=== PATIENT | male | born 1945 | race Caucasian/White ===

== ENCOUNTER 2024-02-28 01:12 | Day surgery (SDC) | payer MEDICARE, SELFPAY ==
[2024-02-08 10:11] VITALS: BMI 21.4
[2024-02-28 08:47] VITALS: BP 125/79; PULSE 102; RESP 18; TEMP 36.1; O2SAT 99
[2024-02-28] MEDS: LACTATED RINGERS 1,000 ML 150 ML IV CONT (08:58)
--- NOTE | 2024-02-28 09:24 | WPDANESEPPF ---
Anes - Initial Pre Proc Eval Procedure: Operation Date: 02/28/24 10:00 Proposed Procedures p Screening Colonoscopy - Sergio Acuna MD Date/Time: 02/28/24 09:24 Surgeon: Sergio Acuna MD Pre Op Diagnosis: screening malignant neoplasm colon Patient Data Age: 78 Gender: M Height: 1.75 m Weight: 66.8 kg Last Vital Signs Temp 36.1 C L 02/28/24 08:47 Pulse 102 H 02/28/24 08:47 Resp 18 02/28/24 08:47 BP 125/79 02/28/24 08:47 Pulse Ox 99 02/28/24 08:47 O2 Del Method Room Air 02/28/24 08:47 Allergies Allergy/AdvReac Type Severity Reaction Status Date / Time No Known Allergies Allergy Verified 02/28/24 08:45 Home Medications Medication Instructions Recorded Confirmed Type sildenafil (pulm.hypertension) 20 40 mg PO DAILY PRN PULMONARY 02/08/24 02/28/24 History mg tablet HYPERTENSION valsartan 160 1 tablet PO DAILY 02/08/24 02/28/24 History mg-hydrochlorothiazide 12.5 mg tablet fexofenadine 60 mg tablet 60 mg PO Q12H 02/28/24 02/28/24 History Patient hx anesthesia problems: none Family hx anesthesia problems: none Results Review: All pre-operative results and documents have been reviewed as part of the pre-operative evaluation. [facility] Past Medical History Medical History (Updated 02/28/24 @ 09:24 by Noble Mello MD) HTN (hypertension) Melanoma Social History Social History Smoking status: Never smoker Alcohol intake: current Drinks per week: 14 Alcohol use details: BEER Substance use: never Substance use type: does not use Living arrangements: with family Spiritual care concerns: No Anes - Eval Final PreProcedure Day of Procedure 02/28/24 09:24 Patient weight: normal Heart: regular rate and rhythm Lungs: clear to auscultation Airway: Mallampati scale class II Neurological: alert and oriented Last oral intake: >/= 8 hours ASA classification: II Emergent: no Anesthetic plan: proceed Anesthesia type and monitoring: general GIVS and standard monitoring Results Review: All pre-operative results and documents have been reviewed as part of the pre-operative evaluation. Informed Consent: The patient's anesthetic plan and its attendant risks and benefits were discussed with the patient/family/POA. Questions were solicited and answers provided to the satisfaction of the patient/family/POA.
--- NOTE | 2024-02-28 10:11 | PM.IMHP ---
H&P: HPI History of Present Illness Date/Time: 02/28/24 10:11 Chief Complaint: History of polyps Narrative: The patient has a history of colonic polyps. Last colonoscopy was 5 years ago and revealed polyps. Review of Systems Review of Systems: All systems reviewed & are unremarkable except as noted in HPI and below PMFSH Past Medical History Medical History (Updated 02/28/24 @ 10:12 by Sergio Acuna MD) HTN (hypertension) Melanoma Social History Social History Smoking status: Never smoker Alcohol intake: current Drinks per week: 14 Alcohol use details: BEER Substance use: never Substance use type: does not use Living arrangements: with family Spiritual care concerns: No Meds Home Medications and Allergies Home Medications Medication Instructions Recorded Confirmed Type sildenafil (pulm.hypertension) 20 40 mg PO DAILY PRN PULMONARY 02/08/24 02/28/24 History mg tablet HYPERTENSION valsartan 160 1 tablet PO DAILY 02/08/24 02/28/24 History mg-hydrochlorothiazide 12.5 mg tablet fexofenadine 60 mg tablet 60 mg PO Q12H 02/28/24 02/28/24 History Allergies Allergy/AdvReac Type Severity Reaction Status Date / Time No Known Allergies Allergy Verified 02/28/24 08:45 Vital Signs Vital Signs - 24 hr 02/28/24 08:47 Temperature 96.9 F L Pulse Rate 102 H Respiratory Rate 18 Blood Pressure 125/79 Pulse Oximetry 99 Oxygen Delivery Room Air Assessment and Plan Assessment and plan (1) History of colonic polyps: Code(s): Z86.0100 - Personal history of colon polyps, unspecified Status: Acute Assessment and Plan: patient deemed a good candidate for colonoscopy. Will proceed.
[2024-02-28 10:37] VITALS: BP 76/49; PULSE 83; RESP 19; O2SAT 96
[2024-02-28 10:40] VITALS: BP 93/60; PULSE 72; RESP 17; O2SAT 98
[2024-02-28 10:47] VITALS: BP 100/61; PULSE 76; RESP 21; O2SAT 98
[2024-02-28 10:57] VITALS: BP 116/72; PULSE 76; RESP 15; O2SAT 100
== END 2024-02-28 11:16 | disposition home or self-care (01) ==
PROVIDERS: PCP Physician Assistant; Visit Provider Internal Medicine Gastroenterology
PROC: 0DJD8ZZ Inspection of Lower Intestinal Tract, Via Natural or Artificial Opening Endoscopic (ICD-10-PCS; CPT 45378; principal; 2024-02-28 10:00)
DX: Z12.11 Encounter for screening for malignant neoplasm of colon (principal); D12.8 Benign neoplasm of rectum; K64.1 Second degree hemorrhoids; K57.30 Diverticulosis of large intestine without perforation or abscess without bleeding; I10 Essential (primary) hypertension; Z85.820 Personal history of malignant melanoma of skin
CPT/HCPCS: 45385; 88305; J2003; J2704; J7120

== ENCOUNTER 2024-09-12 08:27 | Outpatient (CLI) | payer MEDICARE, SELFPAY ==
--- NOTE | ~2024-09-12 | US_ITS ---
US art doppler w press LE BI INDICATION: Peripheral vascular disease TECHNIQUE: Segmental pressures and plethysmographic and Doppler waveforms of the brachial and lower e xtremity arteries were obtained. COMPARISON: None. FINDINGS: Right and left brachial artery pressures of 100 mm Hg and 86 mm Hg, respectively, are concordant (nor mal difference <= 30 mmHg). The right ankle-brachial index (NIESHA) is 1.39 (normal >= 0.9-1.0). The right great toe-brachial index (TBI) is 0.82 (normal >= 0.60). The left NIESHA is 1.3. The left TBI is 0.8. There is triphasic flow in the right common femoral and dorsalis pedis arteries with biphasic flow in the remainder of the right lower extremity arteries. There is triphasic flow in the left common femo ral artery with biphasic flow in the left superficial femoral, popliteal and dorsalis pedis arteries with monophasic flow in the posterior tibial artery. IMPRESSION: 1. Normal ankle-brachial indices. Reviewed, dictated and finalized at location A.
--- OUTSIDE RECORDS SUMMARY | 2024-09-13 11:09 | XMS_ITS | Data Portability ---
Author Organization [employer], Main Office Address [address] [place] [address] Assessment No assessment recorded. Plan of Treatment Reminders Order Date Submit Date Provider Last Modified By Organization Details Last Modified Time Details Appointments Any 15 2024 09:30A CLAUDINE Smith Not available Not available Not available Lab PSA, serum or plasma 2024 025 [facility] (Lab), [address] [place], [address], 07/30/2024 05:00:27 hemoglobi n A1C, fingersti ck [address], [address], 07/21/2024 10:27:04 hemoglobi n A1C, fingersti ck [address], [address], 07/21/2024 10:26:46 glycohemo globin, total, blood [address] (Lab), [address] [place], [address], 01/28/2024 08:37:10 PSA, serum or plasma [email or web address] (Lab), [address] [place], [address], 01/28/2024 08:37:10 lipid panel, serum 2022 023 [email or web address], [address], [place], [address], 01/25/2023 05:40:49 CMP, serum or plasma 2022 023 [email or web address], [address], [place], [address], 01/25/2023 05:40:51 CBC w/ auto diff 2022 023 [email or web address], [address], [place], [address], 01/25/2023 05:40:52 PT/PTT, plasma 2022 023 [email or web address], [address], [place], [address], 01/25/2023 05:40:51 CBC w/ auto diff 2022 023 [email or web address] 1 [facility] (Lab), [address] [place], [address], 02/06/2023 14:50:42 PSA, serum or plasma 2022 023 [email or web address] 1 [facility] (Lab), [address] [place], [address], 02/06/2023 14:50:43 TSH, serum or plasma 2022 023 [email or web address], [address], [place], [address], 01/25/2023 05:40:53 Referral gastroent erologist referral - needs a screening colonosco py . Please call patient to schedule an appointme nt. Thank you . 2023 024 [email or web address] Eddie Llamas MD, [address] [facility] [address], [place], [address], 02/18/2024 08:53:50 Procedures None recorded. Surgeries None recorded. Imaging US, doppler, arterial - bilateral lower extrem 2024 025 [facility] (Imaging), [address] [facility] [address], [place], [address], 09/11/2024 16:54:23 US, doppler, venous - bilateral lower extrem [address] (Imaging), [facility] [address], [place], [address], 08/21/2024 14:13:57 US, duplex, arterial, lower extremity , complete [address] (Imaging), [facility]0 [facility] [address], [place], [address], 02/04/2024 15:53:45 US, doppler, venous - Lower bilateral , US Duplex also ordered *Please call pt to schedule* [address] (Imaging), [address] [facility] [address], [place], [address], 02/27/2024 10:16:12 Medication Orders Cialis 20 mg tablet 2024 [id number], [address] [place], [address], 07/21/2024 14:49:19 valsartan 160 mg-hydroc hlorothia zide 12.5 mg tablet 2024 [place] [id number], [address] [place], [place], [id number], 07/21/2024 09:45:02 cyprohept adine 4 mg tablet 2023 024 [id number], [address] [facility], [place], [id number], 01/21/2024 10:00:23 Patient TargetsNo targets recorded. Patient Instructions Encounter Date Encounter Id Patient Instructions Last Modified By Organization Details Last Modified Time 01/19/2023 [id number] dementia rating scale-2* Not available 01/19/2023 10:07:32 alcohol misuse* Not available 01/19/2023 10:07:38 depression screening* Not available 01/19/2023 10:07:42 multi-dimensiona l health assessment questionnaire* Not available 01/19/2023 10:07:23 Personalized Hea lth Plan and Screening Recommendations Advance Directives - Do you have one? Yes Advance Directives - Do we have your advance directive on file in your health record? No, please bring in a copy at your earliest convenience Primary Prevention/Interven tion (prevents or decreases the chance of common diseases from occurring) Smoking Risk: Non Smoker Alcohol Misuse Screening: Negative Weight: Appropriate Physical activity: Need more exercise/physical activity minimum of 10-20 minutes of activity that causes mild breathlessness/day Nutrition: Good Average Refer to attached handout Heart-Healthy Diet: After Your Visit Fall Risk (screened today): Low Vaccines Pneumococcal: Influenza: Your next one in the fall of this year Chronic Disease Risks Stroke: Low Risk I have no recommendations Heart Attack: Low risk I have no recommendations Clogging of the Arteries: Low risk I have no recommendations Diabetes: Low Risk I have no recommendations Secondary Prevention/Interven tion (detects treatable diseases before they may cause symptoms, disability, or ) Prostate Cancer Screening: No digital rectal exam screening necessary Colon Cancer Screening: Colonoscopy Date Screening Last Performed: 01/23/19 with repeat recommendation for 5 years Eye Disease Screening: Dementia Risk: Low I have no recommendations Depression Screening: Negative [email or web address] Not available 01/18/2023 14:15:45 01/21/2024 [id number] dementia rating scale-2* [email or web address] Not available 01/21/2024 09:51:35 depression screening* Not available 01/21/2024 09:52:10 alcohol misuse* [email or web address] Not availab le 01/21/2024 09:52:10 multi-dimensiona l health assessment questionnaire* [email or web address] Not available 01/21/2024 10:45:51 Personalized Hea lt Plan and Screening Recommendations Advance Directives - Do you have one? Yes Advance Directives - Do we have your advance directive on file in your health record? Primary Prevention/Interven tion (prevents or decreases the chance of common diseases from occurring) Smoking Risk: Non Smoker Alcohol Misuse Screening: Negative Weight: Appropriate continue your current weight loss efforts Physical activity: Need more exercise/physical activity minimum of 10-20 minutes of activity that causes mild breathlessness/day Nutrition: Good Average Fall Risk (screened today): Low Vaccines Pneumococcal: Ordered Recommended today Recommended today, but you have declined Influenza: Your next one in the fall of this year Chronic Disease Risks Stroke: Low Risk I have no recommendations Heart Attack: Low risk I have no recommendations Clogging of the Arteries: Low risk I have no recommendations Diabetes: Low Risk I have no recommendations Secondary Prevention/Interven tion (detects treatable diseases before they may cause symptoms, disability, or ) Prostate Cancer Screening: No digital rectal exam screening necessary Colon Cancer Screening: Colonoscopy Eye Disease Screening: No Eye exam necessary Dementia Risk: Low I have no recommendations Depression Screening: Negative [email or web address] Not available 01/21/2024 10:30:56 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 Please call patient to schedule an appointment. Thank you . Referring Physician: Marek Baeza, Family Medicine, Encounter Date: 01/21/2024 Results Created Date Observation Date Name Description Value Unit Range Abnormal Flag Note LastModifiedBy Organization Detail LastModifiedTime 01/07/20 21 01/07/2021 COMPR EHENS ERIC METAB OLIC PANEL glucose 103 mg/dL 65-99 high Fasti ng refer ence inter brianna For someo ne witho ut known diabe you, a gluco se value betwe en 100 and 125 mg/dL is consi stent with predi abete s and shoul d be confi rmed with a follo w-up test. Not Available [facility] [address] [place], [address], 01/07/2021 05:50:45 01/07/20 21 01/07/2021 COMPR EHENS ERIC METAB OLIC PANEL urea nitrogen (BUN) 27 mg/dL 7-25 high Not Available [address], [address], 01/07/2021 05:50:45 01/07/20 21 01/07/2021 COMPR EHENS ERIC METAB OLIC PANEL creatinine 1.08 mg/dL 0.70-1 .18 normal For patie nts >49 years of age, the refer ence limit for Creat inine is appro ximat agueda 13% highe r for peopl e ident ified as Afric an-Am keren n. Not Available [address], [address], 01/07/2021 05:50:45 01/07/20 21 01/07/2021 COMPR EHENS ERIC METAB OLIC PANEL eGFR non-afr. moldovan 67 mL/mi n/1.7 3m2 > or = 60 normal Not Available [address], [address], 01/07/2021 05:50:45 01/07/20 21 01/07/2021 COMPR EHENS ERIC METAB OLIC PANEL eGFR 78 mL/mi n/1.7 3m2 > or = 60 normal Not Available [address], [address], 01/07/2021 05:50:45 01/07/20 21 01/07/2021 COMPR EHENS ERIC METAB OLIC PANEL BUN/creatini ne ratio 25 (calc ) 6-22 high Not Available [address], [address], 01/07/2021 05:50:45 01/07/20 21 01/07/2021 COMPR EHENS ERIC METAB OLIC PANEL sodium 141 mmol/ L 135-14 6 normal Not Available [address], [address], 01/07/2021 05:50:45 01/07/20 21 01/07/2021 COMPR EHENS ERIC METAB OLIC PANEL potassium 4.4 mmol/ L 3.5-5. 3 normal Not Available [address], [address], 01/07/2021 05:50:45 01/07/20 21 01/07/2021 COMPR EHENS ERIC METAB OLIC PANEL chloride 106 mmol/ L 98-110 normal Not Available [address], [address], 01/07/2021 05:50:45 01/07/2001/07/2021 COMPR EHENS ERIC METAB OLIC PANEL carbon dioxide 26 mmol/ L 20-32 normal Not Available [address], [address], 01/07/2021 05:50:45 01/07/2001/07/2021 COMPR EHENS ERIC METAB OLIC PANEL calcium 9.6 mg/dL 8.6-10 .3 normal Not Available [address], [address], 01/07/2021 05:50:45 01/07/2001/07/2021 COMPR EHENS ERIC METAB OLIC PANEL protein, total 7.0 g/dL 6.1-8. 1 normal Not Available [address], [address], 01/07/2021 05:50:45 01/07/2001/07/2021 COMPR EHENS EIRC METAB OLIC PANEL albumin 4.2 g/dL 3.6-5. 1 normal Not Available [address], [address], 01/07/2021 05:50:45 01/07/20 21 01/07/2021 COMPR EHENS ERIC METAB OLIC PANEL globulin 2.8 g/dL_ (calc ) 1.9-3. 7 normal Not Available [address], [address], 01/07/2021 05:50:45 01/07/20 21 01/07/2021 COMPR EHENS ERIC METAB OLIC PANEL albumin/glob ulin ratio 1.5 (calc ) 1.0-2. 5 normal Not Available [address], [address], 01/07/2021 05:50:45 01/07/20 21 01/07/2021 COMPR EHENS ERIC METAB OLIC PANEL bilirubin, total 0.8 mg/dL 0.2-1. 2 normal Not Available [address], [address], 01/07/2021 05:50:45 01/07/20 21 01/07/2021 COMPR EHENS ERIC METAB OLIC PANEL alkaline phosphatase 67 U/L 35-144 normal Not Available [address], [address], 01/07/2021 05:50:45 01/07/20 21 01/07/2021 COMPR EHENS ERIC METAB OLIC PANEL AST 24 U/L 10-35 normal Not Available [address], [address], 01/07/2021 05:50:45 01/07/20 21 01/07/2021 COMPR EHENS ERIC METAB OLIC PANEL ALT 29 U/L 9-46 normal Not Available [address], [address], 01/07/2021 05:50:45 01/07/20 21 01/07/2021 LIPID PANEL , STAND LAUREN cholesterol, total 161 mg/dL <200 normal Not Available [address] [place] [address] [place], [address], 01/07/2021 05:50:43 01/07/2001/07/2021 LIPID PANEL , STAND LAUREN HDL cholesterol 59 mg/dL > or = 40 normal Not Available [facility] [address] [place], [address], 01/07/2021 05:50:43 01/07/20 21 01/07/2021 LIPID PANEL , STAND LAUREN triglyceride s 62 mg/dL <150 normal Not Available [facility] [address] [address] [place], [address], 01/07/2021 05:50:43 01/07/2001/07/2021 LIPID PANEL , STAND LAUREN LDL-choleste rol 88 mg/dL _(demi c) normal Refer ence range : <100 Enid able range <100 mg/dL for prima ry preve ntion ; <70 mg/dL for patie nts with CHD or diabe tic patie nts with > or = 2 CHD risk facto rs. LDL-C is now calcu lated using the Yolette ruano-Hop kins beckau agata n, which is a valid ated novel familia pappasy than the Fried fernando equat ion in the estim ation of LDL-C . Yolette ruano SS et al. CHERYL. 2013; 310(1 9): 2061- 2068 (http ://ed ucati on.Qu Lucero saldaña tics. com/f aq/FA Q164) Not Available [facility] [address] [place], [address], 01/07/2021 05:50:43 01/07/2001/07/2021 LIPID PANEL , STAND LAUREN chol/HDLC ratio 2.7 (calc ) <5.0 normal Not Available [facility] [address] [place], [address], 01/07/2021 05:50:43 01/07/20 21 01/07/2021 LIPID PANEL , STAND LAUREN non HDL cholesterol 102 mg/dL _(demi c) <130 normal For patie nts with diabe you plus 1 major ASCVD risk facto r, treat ing to a non-H DL-C goal of <100 mg/dL (LDL- C of <70 mg/dL ) is arleen august optio n. Not Available [place] [address] [place], [address], 01/07/2021 05:50:43 01/25/2001/25/2023 LIPID PANEL , STAND LAUREN cholesterol, total 153 mg/dL <200 normal Not Available [address], [address], 01/25/2023 05:40:49 01/25/2001/25/2023 LIPID PANEL , STAND LAUREN HDL cholesterol 52 mg/dL > or = 40 normal Not Available [place] [address] [place], [address], 01/25/2023 05:40:49 01/25/2001/25/2023 LIPID PANEL , STAND LAUREN triglyceride s 98 mg/dL <150 normal Not Available [address], [address], 01/25/2023 05:40:49 01/25/2001/25/2023 LIPID PANEL , STAND LAUREN LDL-choleste rol 82 mg/dL _(demi c) normal Refer ence range : <100 Enid able range <100 mg/dL for prima ry preve ntion ; <70 mg/dL for patie nts with CHD or diabe tic patie nts with > or = 2 CHD risk facto rs. LDL-C is now calcu lated using the Yolette n-Hop kins calcu agata n, which is a valid ated novel familia grider r accur acy than the Fried fernando equat ion in the estim ation of LDL-C . Yolette ruano SS et al. CHERYL. 2013; 310(1 9): 2061- 2068 (http ://ed ucati on.Qu Lucero piper [employer]. com/f aq/FA Q164) Not Available [facility] [address] [address] [address], [place], [address], 01/25/2023 05:40:49 01/25/2001/25/2023 LIPID PANEL , STAND LAUREN chol/HDLC ratio 2.9 (calc ) <5.0 normal Not Available [facility] [address] [address] [address], [place], [address], 01/25/2023 05:40:49 01/25/2001/25/2023 LIPID PANEL , STAND LAUREN non HDL cholesterol 101 mg/dL _(demi c) <130 normal For patie nts with diabe you plus 1 major ASCVD risk facto r, treat ing to a non-H DL-C goal of <100 mg/dL (LDL- C of <70 mg/dL ) is consi dered a thera peuti c optio n. Not Available [place] [address] [facility] [place], [address], 01/25/2023 05:40:49 01/25/2001/25/2023 PROTH ROMBI N W/INR + PARTI AL THROM BOPLA STIN TIMES partial thromboplast in time, activated 28 sec 23-32 normal This test has not been valid ated for monit oring unfra ction ated hepar in thera py. For testi ng that is valid ated for this type of thera py, kamron e refer to the Hepar in Anti- Xa assay (test code 54385 ). For addit ional infor kamron rhoades e refer to http: //georgina ruano.Axel stDia gnost ics.c om/fa q/FAQ 159 (This link is being provi ded for infor connie nal/e ducat ional purpo ses only. ) Not Available [facility] [address] [address] [address], [place], [address], 01/25/2023 05:40:51 01/25/20 23 01/25/2023 PROTH ROMBI N W/INR + PARTI AL THROM BOPLA STIN TIMES INR 1.0 normal Refer ence Range 0.9-1 .1 Moder ate-i ntens ity Warfa rin Thera py 2.0-3 .0 Highe r-int ensit y Warfa rin Thera py 3.0-4 .0 Not Available [address], [address], 01/25/2023 05:40:51 01/25/20 23 01/25/2023 PROTH ROMBI N W/INR + PARTI AL THROM BOPLA STIN TIMES PT 10.4 sec 9.0-11 .5 normal Not Available [address], [address], 01/25/2023 05:40:51 01/25/20 23 01/25/2023 COMPR EHENS ERIC METAB OLIC PANEL glucose 89 mg/dL 65-99 normal Fasti ng refer ence inter brianna Not Available [address], [address], 01/25/2023 05:40:51 01/25/20 23 01/25/2023 COMPR EHENS ERIC METAB OLIC PANEL urea nitrogen (BUN) 20 mg/dL 7-25 normal Not Available [address], [address], 01/25/2023 05:40:51 01/25/20 23 01/25/2023 COMPR EHENS ERIC METAB OLIC PANEL creatinine 1.09 mg/dL 0.70-1 .28 normal Not Available [address], [address], 01/25/2023 05:40:51 01/25/20 23 01/25/2023 COMPR EHENS ERIC METAB OLIC PANEL eGFR 70 mL/mi n/1.7 3m2 > or = 60 normal Not Available [address] [place], [address], 01/25/2023 05:40:51 01/25/2001/25/2023 COMPR EHENS ERIC METAB OLIC PANEL BUN/creatini ne ratio SEE NOTE: (calc ) 6-22 Not Repor garrett: BUN and Creat inine are withi n refer ence range . Not Available [address], [address], 01/25/2023 05:40:51 01/25/20 23 01/25/2023 COMPR EHENS ERIC METAB OLIC PANEL sodium 137 mmol/ L 135-14 6 normal Not Available [address], [address], 01/25/2023 05:40:51 01/25/20 23 01/25/2023 COMPR EHENS ERIC METAB OLIC PANEL potassium 4.2 mmol/ L 3.5-5. 3 normal Not Available [address], [place], [address], 01/25/2023 05:40:51 01/25/2001/25/2023 COMPR EHENS ERIC METAB OLIC PANEL chloride 103 mmol/ L 98-110 normal Not Available [address], [address], 01/25/2023 05:40:51 01/25/2001/25/2023 COMPR EHENS ERIC METAB OLIC PANEL carbon dioxide 29 mmol/ L 20-32 normal Not Available [facility] [address], [address], 01/25/2023 05:40:51 01/25/2001/25/2023 COMPR EHENS ERIC METAB OLIC PANEL calcium 9.2 mg/dL 8.6-10 .3 normal Not Available [address], [address], 01/25/2023 05:40:51 01/25/20 23 01/25/2023 COMPR EHENS ERIC METAB OLIC PANEL protein, total 6.5 g/dL 6.1-8. 1 normal Not Available [address], [address], 01/25/2023 05:40:51 01/25/20 23 01/25/2023 COMPR EHENS ERIC METAB OLIC PANEL albumin 4.0 g/dL 3.6-5. 1 normal Not Available [address], [address], 01/25/2023 05:40:51 01/25/2001/25/2023 COMPR EHENS ERIC METAB OLIC PANEL globulin 2.5 g/dL_ (calc ) 1.9-3. 7 normal Not Available [address], [address], 01/25/2023 05:40:51 01/25/20 23 01/25/2023 COMPR EHENS ERIC METAB OLIC PANEL albumin/glob ulin ratio 1.6 (calc ) 1.0-2. 5 normal Not Available [address], [address], 01/25/2023 05:40:51 01/25/20 23 01/25/2023 COMPR EHENS ERIC METAB OLIC PANEL bilirubin, total 0.7 mg/dL 0.2-1. 2 normal Not Available [address], [address], 01/25/2023 05:40:51 01/25/20 23 01/25/2023 COMPR EHENS ERIC METAB OLIC PANEL alkaline phosphatase 65 U/L 35-144 normal Not Available [address], [address], 01/25/2023 05:40:51 01/25/20 23 01/25/2023 COMPR EHENS ERIC METAB OLIC PANEL AST 23 U/L 10-35 normal Not Available [address], [address], 01/25/2023 05:40:51 01/25/20 23 01/25/2023 ROBBIE HAMMONDS ERIC METAB OLIC PANEL ALT 17 U/L 9-46 normal Not Available [address], [address], 01/25/2023 05:40:51 01/25/20 23 01/25/2023 CBC (INCL UDES DIFF/ PLT) white blood cell count 3.8 thous and/u L 3.8-10 .8 normal Not Available [address], [address], 01/25/2023 05:40:52 01/25/20 23 01/25/2023 CBC (INCL UDES DIFF/ PLT) red blood cell count 5.02 gela on/uL 4.20-5 .80 normal Not Available [address], [address], 01/25/2023 05:40:52 01/25/2001/25/2023 CBC (INCL UDES DIFF/ PLT) hemoglobin 15.3 g/dL 13.2-1 7.1 normal Not Available [address], [address], 01/25/2023 05:40:52 01/25/2001/25/2023 CBC (INCL UDES DIFF/ PLT) hematocrit 46.3 % 38.5-5 0.0 normal Not Available [address], [address], 01/25/2023 05:40:52 01/25/2001/25/2023 CBC (INCL UDES DIFF/ PLT) MCV 92.2 fL 80.0-1 00.0 normal Not Available [address], [address], 01/25/2023 05:40:52 01/25/2001/25/2023 CBC (INCL UDES DIFF/ PLT) MCH 30.5 pg 27.0-3 3.0 normal Not Available [address], [address], 01/25/2023 05:40:52 01/25/2001/25/2023 CBC (INCL UDES DIFF/ PLT) MCHC 33.0 g/dL 32.0-3 6.0 normal Not Available [address], [address], 01/25/2023 05:40:52 01/25/2001/25/2023 CBC (INCL UDES DIFF/ PLT) RDW 13.3 % 11.0-1 5.0 normal Not Available [address], [address], 01/25/2023 05:40:52 01/25/2001/25/2023 CBC (INCL UDES DIFF/ PLT) platelet count 151 thous and/u L 140-40 0 normal Not Available [address], [address], 01/25/2023 05:40:52 01/25/2001/25/2023 CBC (INCL UDES DIFF/ PLT) MPV 11.7 fL 7.5-12 .5 normal Not Available [address], [address], 01/25/2023 05:40:52 01/25/2001/25/2023 CBC (INCL UDES DIFF/ PLT) absolute neutrophils 2519 cells /uL 1500-7 800 normal Not Available [address], [address], 01/25/2023 05:40:52 01/25/2001/25/2023 CBC (INCL UDES DIFF/ PLT) absolute lymphocytes 737 cells /uL 850-39 00 low Not Available [address], [address], 01/25/2023 05:40:52 01/25/2001/25/2023 CBC (INCL UDES DIFF/ PLT) absolute monocytes 445 cells /uL 200-95 0 normal Not Available [address], [address], 01/25/2023 05:40:52 01/25/2001/25/2023 CBC (INCL UDES DIFF/ PLT) absolute eosinophils 80 cells /uL 15-500 normal Not Available [address], [address], 01/25/2023 05:40:52 01/25/2001/25/2023 CBC (INCL UDES DIFF/ PLT) absolute basophils 19 cells /uL 0-200 normal Not Available [address], [address], 01/25/2023 05:40:52 01/25/2001/25/2023 CBC (INCL UDES DIFF/ PLT) neutrophils 66.3 % normal Not Available [address], [address], 01/25/2023 05:40:52 01/25/2001/25/2023 CBC (INCL UDES DIFF/ PLT) lymphocytes 19.4 % normal Not Available [facility] [address], [address], 01/25/2023 05:40:52 01/25/2001/25/2023 CBC (INCL UDES DIFF/ PLT) monocytes 11.7 % normal Not Available [facility] [address], [address], 01/25/2023 05:40:52 01/25/2001/25/2023 CBC (INCL UDES DIFF/ PLT) eosinophils 2.1 % normal Not Available [facility] [address] [place], [address], 01/25/2023 05:40:52 01/25/2001/25/2023 CBC (INCL UDES DIFF/ PLT) basophils 0.5 % normal Not Available [facility] [address] [place], [address], 01/25/2023 05:40:52 01/25/2001/25/2023 TSH TSH 3.58 mIU/L 0.40-4 .50 normal Not Available [facility] [address] [place], [address], 01/25/2023 05:40:53 07/23/19 25 07/22/2024 hemog lobin A1C, finge rstic k HgbA1C 6.0 Not Available [address], [address], 07/21/2024 09:47:07 07/23/1907/22/2024 hemog lobin A1C, finge rstic k HgbA1C 6.0 Not Available [address], [address], 07/21/2024 09:46:58 09/13/19 25 09/12/2024 US, mikey reyes, arter ial, lower extre mity, compl ete No observ ation record ed. [facility] [address], [place], [address], 09/12/2024 13:15:32 Result Notes None recorded. Problems Name Problem SNOMED Code Status Onset Date Resolution Date Notes Provider Name and Address Organization Details Recorded Time Persistent insomnia 006352959 Active 2018 Not Available [facility] 3 20:40:08 Abnormal weight loss 237180573 Active 2018 Not Available [facility] 3 20:40:08 Vitamin D deficiency 64030734 Active 2018 Not Available [facility] 3 20:40:08 Seasonal allergic rhinitis 353957613 Active 2018 Not Available [facility] 3 20:40:08 Elevated blood-pres sure reading without diagnosis of hypertensi on 109076960 Active 2018 Not Available [facility] 3 20:40:08 Primary erectile dysfunctio n 378585201 Active 2018 Not Available [facility] 3 20:40:08 Essential hypertensi on 71298712 Active 2018 Not Available [facility] 3 20:40:08 Skin lesion 79063579 Active 2018 Not Available [facility] 3 20:40:09 Unintentio nal weight loss 681925375 Active 2022 Siva Scott MD [address], [place], [address] , [facility] 3 09:46:19 Fatigue 63145986 Active 2022 Siva Scott MD [address], [place], [address] , [facility] 3 09:48:09 Easy bruising 639980164 Active 2022 Siva Scott MD [address], [place], [address] , [facility] 3 09:51:06 Screening for malignant neoplasm of prostate Active 2023 CLAUDINE Monsivais [address], [place], [address] , [facility] [employer] [facility] 4 09:45:21 Screening for malignant neoplasm of colon Active 2023 CLAUDINE Monsivais [address], [place], [address] , [facility] 4 09:45:43 Taking multiple medication s for chronic disease 0119534557670 08 Active 2023 CLAUDINE Monsivais [address], [place], [address] , [employer] 4 09:54:36 Loss of appetite 37986634 Active 2023 CLAUDINE Monsivais [address] [employer], [place], [address] , [employer] 4 09:59:08 Poor peripheral circulatio n 8586299 Active 2023 CLAUDINE Monsivais [address], [place], [address] , [employer] 4 10:00:56 Prostate specific antigen above reference range 382456518 Active 2024 CLAUDINE Monsivais [address] [employer], [address], [place], [address] , [employer] 5 13:59:32 Problem Notes None recorded. Procedures Surgical History Date Name Laterality Status Provider Name and Address Organization Details Recorded Time 4 Medicare Wellness CPT Code, subsequent completed Pamela España RN [place] [employer] Information 01/21/2024 09:32:08 3 Medicare Wellness CPT Code, subsequent completed Jessy Bowman RN [place] [employer] 01/18/2023 14:07:53 excision of melanoma completed Not Available [facility] 07/12/2022 20:39:23 Imaging Results Imaging Date Name Status LastModified by Organiz ation Details LastModified Time 09/12/2024 US, duplex, arterial, lower extremity, complete active [place] [id number] [facility] [address] [place] [address], [address], 09/12/2024 13:15:32 Procedure Notes None recorded. Medical Equipment None Reported. Allergies No known drug allergies Medications Name Sig Start Date Stop Date Status Note LastModified by Organization Details LastModified Time clindamycin HCl 300 mg capsule TAKE 1 CAPSULE BY MOUTH EVERY 6 HOURS active Not Available Not Available No t Available trazodone 50 mg tablet Take 1 tablet every day by oral route. active Not Available Not Available No t Available cetirizine 10 mg tablet Take 1 tablet every day by oral route. 01/29 completed Not Available Not Available Not Available azithromyci n 250 mg tablet active Not Available Not Available Not Available ibuprofen 800 mg tablet TAKE 1 TABLET BY MOUTH EVERY 6 HOURS active Not Available Not Available No t Available valsartan 160 mg-hydrochl orothiazide 12.5 mg tablet TAKE 1 TABLET BY MOUTH EVERY DAY 2024 active Not Available Not Available Not Avai lable tramadol 50 mg tablet TAKE 1 TABLET BY MOUTH EVERY 6 HOURS NEEDED FOR PAIN active Not Available Not Available No t Available cyproheptad ine 4 mg tablet Take by oral route for 30 days. active Not Available Not Available No t Available amoxicillin 875 mg tablet TAKE 1 TABLET BY MOUTH EVERY 12 HOURS 01/20 completed Not Available Not Available Not Available amitriptyli ne 25 mg tablet TAKE 1 TABLET BY MOUTH EVERY NIGHT AT BEDTIME 09/22 completed d/c Not Available Not Available Not Available triamcinolo ne acetonide 0.1 % topical ointment APPLY TO RASH ON ANKLES TWICE DAILY FOR 2 WEEKS active Not Available Not Available No t Available clobetasol 0.05 % topical ointment APPLY TO THE AFFECTED AREA ON LEGS TWICE DAILY NEEDED FOR FLARE UPS active Not Available Not Available No t Available lisinopril 10 mg-hydrochl orothiazide 12.5 mg tablet Take 1 tablet every day by oral route in the morning. 01/03 completed Not Available Not Available Not Available methylpredn isolone 4 mg tablets in a dose pack FPD 01/03 completed Not Available Not Available Not Available Vitamin D2 1,250 mcg (50,000 unit) capsule Take 1 capsule every week by oral route. 01/03 completed Not Available Not Available Not Available fluticasone propionate 50 mcg/actuati on nasal spray,suspe nsion Toone 1 spray twice a day by intranasa l route. 01/03 completed Not Available Not Available Not Available naproxen 500 mg tablet TAKE 1 TABLET BY MOUTH TWICE DAILY WITH FOOD active Not Available Not Available No t Available Benicar HCT 20 mg-12.5 mg tablet Take 1 tablet every day by oral route. 01/03 completed Not Available Not Available Not Available tadalafil 20 mg tablet TAKE ONE TABLET BY MOUTH UP TO ONCE daily NEEDED active Not Available Not Available No t Available sildenafil (pulmonary hypertensio n) 20 mg tablet Take 2 tablets by mouth up to once daily as needed active Not Available Not Available No t Available Fluzone High-Dose 8555-0911 (PF) 180 mcg/0.5 mL intramuscul ar syringe 01/29 completed Not Available Not Available Not Available Fluzone Quad (PF) 60 mcg (15 mcg x 4)/0.5 mL IM syringe 01/03 completed Not Available Not Available Not Available Vitals Date Recorded Body mass index (BMI) Body height Oxygen saturation Oxygen saturation in Arterial blood by Pulse oximetry Heart rate Body temperature Body weight Systolic blood pressure Diastolic blood pressure Provider Name and Address Organization Details Last Updated DateTime 1 23.3 kg/m2 175.26 cm 98 % 98 % 88 /min 97.4 [degF] 63751.5 9 g 102 mm[Hg] 80 mm[Hg] Not Available [facility] 3 20:39:48 Date Recorded Body mass index (BMI) Body height Oxygen saturation Oxygen saturation in Arterial blood by Pulse oximetry Heart rate Body temperature Body weight Systolic blood pressure Diastolic blood pressure Provider Name and Address Organization Details Last Updated DateTime 2 23 kg/m2 175.26 cm 98 % 98 % 79 /min 97 [degF] 55550.4 1 g 110 mm[Hg] 80 mm[Hg] Not Available [facility] 3 20:39:48 Date Recorded Body weight Body mass index (BMI) Body height Body temperature Heart rate Oxygen saturation Oxygen saturation in Arterial blood by Pulse oximetry Systolic blood pressure Diastolic blood pressure Provider Name and Address Organization Details Last Updated DateTime 3 15746.4 5 g 22.3 kg/m2 175.26 cm 98.4 [degF] 70 /min 98 % 98 % 110 mm[Hg] 62 mm[Hg] Nena morales CMA [place] [facility] 3 09:35:29 Date Recorded Body height Body mass index (BMI) Body weight Body temperature Heart rate Oxygen saturation Oxygen saturation in Arterial blood by Pulse oximetry Respiratory rate Systolic blood pressure Diastolic blood pressure Provider Name and Address Organization Details Last Updated DateTime 4 175.26 cm 22 kg/m2 02423.2 6 g 98.5 [degF] 60 /min 100 % 100 % 16 /min 110 mm[Hg] 68 mm[Hg] Pamela España RN [facility] [place] [facility] 4 09:37:32 Date Recorded Body height Body mass index (BMI) Body weight Body temperature Heart rate Respiratory rate Oxygen saturation Oxygen saturation in Arterial blood by Pulse oximetry Systolic blood pressure Diastolic blood pressure Provider Name and Address Organization Details Last Updated DateTime 5 175.26 cm 23.1 kg/m2 59483.8 5 g 98 [degF] 97 /min 16 /min 97 % 97 % 120 mm[Hg] 70 mm[Hg] Kerrie Huang [facility] [place] [facility] 5 09:24:43 Social History Question Answer Notes LastModified by [employer] Details LastModified Time Tobacco Smoking Status Never Smoker Not Available [facility] 07/12/2022 20:39:17 In The 14 Days Before Symptom Onset, Have You Had Close Contact With A Laboratory-confirm ed COVID-19 While That Case Was Ill? No [id number] Information not available 07/12/2022 In The 14 Days Before Symptom Onset, Have You Had Close Contact With A Person Who Is Under Investigation For COVID-19 While That Person Was Ill? No [id number] Information not available 07/12/2022 What Type Of Diet Are You Following? REGULAR [id number] Information not available 07/12/2022 What Was The Date Of Your Most Recent Tobacco Screening? 01/21/2024 [email or web address] Information not available 01/21/2024 Have You Recently Traveled Abroad? No [id number] Information not available 07/12/2022 Sex: Unknown Functional Status Question Answer Note LastModified by [employer] Details LastModified Time What is your exercise level? None [id number] Information not available 07/12/2022 Mental Status None recorded. Family History Relationship Description Onset Age of this Age Resolved Age Notes LastModified by Organization Details LastModified Time Mother Pulmonary emphysema [id number] Not available 07/12/2022 20:39:24 Daughter Type 1 diabetes mellitus [id number] Not available 07/12/2022 20:39:24 Medical History No medical history recorded. Past Encounters Encounter ID Performer Location Encounter Start Date Encounter Closed Date Diagnosis/Indication Diagnosis SNOMED-CT Code Diagnosis ICD10 Code Diagnosis Note [id number] Siva Scott MD [facility] Laura garcia [address] [place] [address] 01/03/2021 00:00:00 01/04/2021 08:57:32 [id number] Siva Scott MD [facility] Laura garcia [address] [place] [address] [place] [address] 09/22/2021 00:00:00 09/22/2021 13:19:29 [id number] Siva Scott MD [facility] Laura garcia formerly [facility] [address] [place] [address] 01/19/2023 09:25:36 01/19/2023 09:54:29 Adult health examination 056537155 Z00.00 Screening for disorder 711803901 Z13.9 Unintentio nal weight loss 912610701 R63.4 Hyperlipid emia screening 060033452 Z13.220 Fatigue 34918090 R53.83 Screening for malignant neoplasm of prostate 639169924 Z12.5 Easy bruising 705156182 R58 [id number] Shaun Urias MD [facility] Laura llsalomon formerly [facility] [place] [address] [place] [address] [address] 01/21/2024 09:11:48 01/21/2024 10:06:21 Adult health examination 352480022 Z00.00 Screening for disorder 230056561 Z13.9 Screening for malignant neoplasm of prostate 604213047 Z12.5 Screening for malignant neoplasm of colon 407961380 Z12.11 Taking mul tiple medications for chronic disease 4269889982 40893 Z79.899 Loss of appetite 2325661 6 R63.0 Poor perip heral circulation 1521831 I73.9 Essential hypertension 29477458 I10 Seasonal a llergic rhinitis 904540590 J30.2 Unintentio nal weight loss 441502857 R63.4 [id number] Shaun Urias MD [facility] [address] [address] 07/21/2024 09:16:43 07/21/2024 16:48:02 Poor peripheral circulation 5548886 I73.9 Essential hypertension 59920766 I10 Primary er ectile dysfunction 358237786 N52.9 Screening for malignant neoplasm of prostate 759724757 Z12.5 Taking mul tiple medications for chronic disease 2318565378 05962 Z79.899 Health Concerns Section Related Observation LastModified by Organization Detai ls LastModified Time None Recorded Concern Status LastModified by Organization Details LastModified Time None Recorded Advance Directives Directive None Recorded Payers Encounter Date Sequence Insurance Name Policy Number Policy Matos Covered Member ID Matos Member ID Guarantor Name 01/19/2023 1 [employer] (MEDICARE REPLACEMENT PPO) [id number] Bill Beverly [id number] Bill Beverly 01/21/2024 1 [employer] (MEDICARE REPLACEMENT PPO) [id number] Bill Beverly [id number] Bill Beverly 07/21/2024 1 [employer] (MEDICARE REPLACEMENT PPO) [id number] Bill Beverly [id number] Bill Beverly Notes Date Note Type Note Provider Name and Address Organization Details Recorded Time 01/19/2023 text/html Here for [facility]. Castillo s issues with age spots on right leg. Has appetite problems and exhaustion. On no blood thinners. Needs BW. Had colonoscopy in 2019. No fmhx of colon cancer. No fmhx of prostate cancer. Siva Scott MD [address], [place], [address], [place] [facility] [employer] 01/20/2023 18:04:36 01/21/2024 text/html no appetite , castillo s lost weight , 10 pounds ; sores on legs lack of energy. the airport operations manager gave him an ointment for the dry scaly skin on lower legs CLAUDINE Monsivais [address], [place], [address], [place] [facility] 01/21/2024 17:06:28 07/21/2024 text/html Did not get tests . CLAUDINE Almaguer [address] [place] [address], [place] [address], [place], [address], [facility] [employer] [facility] [place] [facility] 07/27/2024 16:02:20
--- OUTSIDE RECORDS SUMMARY | 2024-09-13 11:10 | XMS_ITS | Clinical Summary ---
Author Organization [facility] Address [address] [place] [address] Care Team Providers Care Peanut Farmer Name Role Phone Unavailable Primary Care Provider Unavailabl e Social History Tobacco Use Types Packs/Day Years Used Date Smoking Tobacco: Never Assessed Sex and Gender Information Value Date Recorded Sex Assigned at Not on file Legal Sex Male 7:52 PM CDT Gender Identity Not on file Sexual Orientation Not on file Plan of Treatment Health Maintenance Due Date Last Done Comments Hepatitis C 1963 DTaP, Tdap and Td Vaccines ( 1 - Tdap) 1965 Pneumococcal Vaccine: 50+ Ye ars (1 of 1 - PCV) 1996 Zoster Vaccines (1 of 2) 1996 RSV Immunization or 60+ Years (1 - 1-dose 75+ series) 2021 COVID-19 Vaccine ( - 2023-2 5 season) 2024 Meningococcal B Vaccine Aged Out No l onger eligible based on patient's age to complete this topic Meningococcal Vaccine Aged Out No rukhsana kimberlee eligible based on patient's age to complete this topic RSV Immunizations Under 20 Months Aged Out No longer eligible based on patient's age to complete this topic
--- OUTSIDE RECORDS SUMMARY | 2024-09-13 11:10 | XMS_ITS | Clinical Summary ---
Author Organization [facility] Address [address], [address] [address] Phone Care Team Providers Care Field Logistics Coordinator Name Role Phone Siva Scott MD Primary Care Provider [phone] Medications Cholecalciferol (VITAMIN D PO) Take by mouth. Active sildenafil (REVATIO) 20 MG Tablet Take 20 mg by mouth 3 times daily. Active fluticasone (FLONASE) 50 MCG/ACT Suspension 1-2 Sprays by Nasal route daily. Use in each nostril as directed. Active Cetirizine HCl (ZYRTEC PO) Take by mouth. Act victoria valsartan-hydroC HLOROthiazide (DIOVAN-HCT) 160-12.5 MG Tablet TK 1 T PO QD 4 9 Active traZODone (DESYREL) 50 MG Tablet trazodone 50 mg tablet TK 1 T PO D Active FIBER POIndications:be nifiber morning and night Take by mouth. Indications: benifiber morning and night Active Probiotic Product (PROBIOTIC DAILY PO) Take by mouth. Activ e Nutritional Supplements (BOOST) Liquid Take by mouth. Active amitriptyline (ELAVIL) 25 MG Tablet Take 1 Tab by mouth nightly. 90 Tab 3 0 Active Active Problems Problem Noted Date Diagnosed Date High blood pressure 06/14/2018 Immunizations Immunization Administration Dates Next Due Influenza Vaccine less than 3 yrs 02/11/2019 Family History Medical History Relation Name Comments Emphysema Mother Stroke Mother Relation Name Status Comments Mother Stroke Social History Tobacco Use Types Packs/Day Years Used Date Smoking Tobacco: Never Smokeless Tobacco: Never Alcohol Use Standard Drinks/Week Comments Yes 0 (1 standard drink = 0.6 oz pur e alcohol) couple beers daily AUDIT-C Answer Date Recorded Frequency of Alcohol Consumption 2-3 times a wesalomon k 12/11/2018 Average Number of Drinks Not on file 019 Frequency of Binge Drinking Not on file 11/13 Sex and Gender Information Value Date Recorded Sex Assigned at Not on file Legal Sex Male 11:33 PM CDT Gender Identity Not on file Sexual Orientation Not on file 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 file Not on file Not on file Last Filed Vital Signs Vital Sign Reading Time Taken Comments Blood Pressure 110/78 03/12/2019 9:23 AM CDT Pulse 106 03/12/2019 9:23 AM CDT Temperature - - Respiratory Rate - - Oxygen Saturation 98% 03/12/2019 9:23 AM CDT Inhaled Oxygen Concentration - - Weight 69.9 kg (154 lb) 03/12/2019 9:23 AM CDT Height 175.3 cm (5' 9 ) 03/12/2019 9:23 AM CDT Body Mass Index 22.74 03/12/2019 9:23 AM CDT Plan of Treatment Health Maintenance Due Date Last Done Comments Hepatitis C Virus (HCV) Screening 1945 TdaP Immunization 1945 Zoster Immunization (1 of 2) 1996 Pneumococcal Immunization (50+ years) (2 of 2 - PPSV23) 02/08/2016 02/07/2015 Respiratory Syncytial Virus (RSV) Immunization (Adult) (1 - 1-dose 75+ series) 2021 Influenza Immunization (#1) 2024 1005/2018, 02/22/2017, 02/10/2016, Additional history exists SARS-COV-2 Immunization ( season) 2024 12/07/2021, 03/17/2021, 07/15/2020, Additional history exists Pneumococcal Immunization Combined Discontinued 02/07/2015 Colonoscopy High Risk Discontinued 01/23/2019 Colonoscopy Discontinued 01/23/2019 Colorectal Cancer Screening Discontinued Cologuard Discontinued Hepatitis B Immunization Aged Out No longer eligible based on patient's age to complete this topic Immunochemical Fecal Occult Blood Discontinued Meningococcal Immunization (ACWY) Aged Out No longer eligible based on patient's age to complete this topic Rotavirus Immunization Aged Out No lo nger eligible based on patient's age to complete this topic Procedures Procedure Name Priority Date/Time Associated Diagnosis Comments COLONOSCOPY Routine 01/23/2019 from Last 3 Months or Most Recently Relevant to Health Maintenance Results * COLONOSCOPY (01/23/2019) Eddie Dhillon DO PROCEDURE/MINOR SURGICAL ORDERA BLES Final Result from Last 3 Months or Most Recently Relevant to Health Maintenance Care Teams Field Logistics Coordinator Relationship Specialty Start Date End Date Siva Scott MD [address] [place] [address] [place] [address] PCP - General Overnight Houseperson 03/12/19
--- OUTSIDE RECORDS SUMMARY | 2024-09-13 11:10 | XMS_ITS | Patient Health Record ---
Author Organization [facility] Address [address] [place] [address] Care Team Providers Care Bar Turner Name Role Phone Rodrigo Linder Primary Care Provider Reason For Referral No Information Immunizations Vaccine Route Administration Date Status Comme nts COVID-19 Moderna 2nd IM Intramuscular 07/15/2020 Administered COVID-19 Moderna 1ST IM Intramuscular 06/17/2020 Administered Animal Pathologist: Moderna. Patient tolerated well. Plan Of Treatment No Information Insurance Providers Payer Name Payer Address Payer Phone Subscriber Number Group Number Insured Name Patient Relationship to Insured Coverage Start Date Coverage End Date [facility] [address] [place] [address] [id number] Bill Beverly Self - patient is the insured
== END 2024-09-12 08:28 | disposition home or self-care (01) ==
PROVIDERS: PCP Physician Assistant; Visit Provider Physician Assistant
DX: I73.9 Peripheral vascular disease, unspecified (principal)
CPT/HCPCS: 93923

== ENCOUNTER 2024-12-29 07:33 | Outpatient (CLI) | payer MEDICARE, SELFPAY ==
--- NOTE | ~2024-12-29 | PE_ITS ---
EXAMINATION: PET_PETPSMAST_PT DATE: 12/29/2024 10:38 INDICATION: Prostate cancer TECHNIQUE: 5.523 mCi of Illucix Ga-68([id number]) was administered i.v. Low dose computed arlene graphy (CT) images were acquired from the base of the brain to the base of the brain to the proximal thighs for attenuation correction and anatomic localization. Positron emission tomography (PET) image s were acquired in the same distribution beginning 75 minutes after injection. Images including fused PET/CT images were reconstructed in axial, coronal, and sagittal planes. Automated exposure control technique was employed. The dose-length product was 714.58mGy-cm. COMPARISON: None FINDINGS: Head/neck: Typical pattern of symmetric physiologic increased activity in the lacrimal, parotid and submandibula r glands as well as along the mucosa of the nasal and oral cavities, pharynx and hypopharynx. No path ologically enlarged cervical lymphadenopathy or suspicious foci of increased uptake in the visualized head or neck. Chest: Mild dependent atelectasis in both lungs. No suspicious pulmonary nodules, pneumonia, pulmonary edema or pleural effusion. Heart size is normal. Atherosclerotic coronary artery calcification. No pericar dial effusion. Thoracic aorta is normal in caliber. No pathologically enlarged thoracic lymphadenopat hy. Abdomen/pelvis/proximal thighs: Physiologic renal accumulation and excretion of activity in the kidneys, bladder and along portions o f ureters. Focus of increased activity with maximal SUV of 14.8 at the right side of the mildly enlar ged prostate which measures 4.5 x 3.0 cm. Normal degree and slightly heterogenous pattern of increase d uptake throughout the liver and spleen without radiologic correlate or dominant PSMA avid lesion. T he gallbladder, pancreas and bilateral adrenal glands are normal. Moderate uptake scattered throughou t the bowels with typical duodenal and proximal jejunal predominance and without radiologic correlate , also likely physiologic. There is mild colonic diverticulosis with a sigmoid predominance. There i s no adjacent inflammatory change to suggest diverticulitis. Normal appendix. Small right and modera te-sized left fat-containing inguinal hernias. No other abnormal foci of increased uptake or patholog ically enlarged lymphadenopathy in the abdomen, pelvis or proximal thighs. Musculoskeletal: No suspicious lytic, blastic or abnormally PSMA avid bone lesions. IMPRESSION: 1. Small region of increased uptake at the right side of the mildly enlarged prostate consistent with primary prostate cancer. No lesion suspicious for metastatic disease. Reviewed, dictated and finalized at location A. IMPRESSION: 1. Small region of increased uptake at the right side of the mildly enlarged pr ostate consistent with primary prostate cancer. No lesion suspicious for metast atic disease.
--- OUTSIDE RECORDS SUMMARY | 2024-12-29 07:37 | XMS_ITS | Patient Health Record ---
Author Organization [facility] Address [address] [place] [address] Care Team Providers Care Lead Manufacturing Engineering Tech Name Role Phone Rodrigo Linder Primary Care Provider [phone] Reason For Referral No Information Immunizations Vaccine Route Administration Date Status Comme nts COVID-19 Moderna 1ST IM Intramuscular 06/17/2020 Administered Acid Pump Operator: Moderna. Patient tolerated well. COVID-19 Moderna 2nd IM Intramuscular 07/15/2020 Administered Plan Of Treatment No Information Insurance Providers Payer Name Payer Address Payer Phone Subscriber Number Group Number Insured Name Patient Relationship to Insured Coverage Start Date Coverage End Date [facility] [address] [place] [address] [id number] Bill Beverly Self - patient is the insured
--- OUTSIDE RECORDS SUMMARY | 2024-12-29 07:38 | XMS_ITS | Clinical Summary ---
Author Organization [facility] Address [address] [place] [address] Care Team Providers Care Facilities Technician Name Role Phone Unavailable Primary Care Provider [...]
== END 2024-12-29 07:34 | disposition home or self-care (01) ==
PROVIDERS: PCP Family Medicine; Visit Provider Urology
DX: C61 Malignant neoplasm of prostate (principal)
CPT/HCPCS: 78815; A9596

== ENCOUNTER 2025-04-17 11:04 | Outpatient (CLI) | payer MEDICARE, SELFPAY ==
[2025-04-17 12:18] LABS: Prostate Specific Antigen 4.2 ng/mL (< OR = 4.0)
== END 2025-04-17 11:05 | disposition home or self-care (01) ==
PROVIDERS: PCP Family Medicine; Visit Provider Urology
DX: C61 Malignant neoplasm of prostate (principal); Z12.5 Encounter for screening for malignant neoplasm of prostate
CPT/HCPCS: 36415; 84153; G0103